=== PATIENT | female | born 1935 | race African-American/Black ===

== ENCOUNTER 2022-07-15 09:09 | Emergency (ER) | payer OTHER ==
[~2022-07-15] VITALS: Ht 165.1 cm; Wt 82.0 kg
[2022-07-15 12:39] VITALS: BP 168/75
== END 2022-07-15 14:05 | disposition home or self-care (01) ==
LOC: EDBD 09:09 → ER 09:09
DX: S00.83XA Contusion of other part of head, initial encounter (principal); G30.9 Alzheimer's disease, unspecified; F02.80 Dementia in other diseases classified elsewhere, unspecified severity, without behavioral disturbance, psychotic disturbance, mood disturbance, and anxiety; W18.39XA Other fall on same level, initial encounter; Y93.89 Activity, other specified; Y92.89 Other specified places as the place of occurrence of the external cause; Y99.8 Other external cause status
CPT/HCPCS: 36415; 70450; 84484; 93005